=== PATIENT | female | born 1975 | race Caucasian/White ===

== ENCOUNTER → 2017-10-24 | Outpatient (CLI) | payer OTHER | LOC: RAD 07:44 | DX: Z12.31 Encounter for screening mammogram for malignant neoplasm of breast (principal) ==

== ENCOUNTER → 2018-02-02 | Outpatient (CLI) | payer OTHER | LOC: CAT 06:06 | DX: J32.3 Chronic sphenoidal sinusitis (principal); J32.0 Chronic maxillary sinusitis; J34.89 Other specified disorders of nose and nasal sinuses; G43.001 Migraine without aura, not intractable, with status migrainosus ==

== ENCOUNTER → 2018-08-28 | Outpatient (CLI) | payer OTHER | LOC: ULTRA 07:31 | DX: N83.02 Follicular cyst of left ovary (principal) ==

== ENCOUNTER → 2019-01-18 | Outpatient (CLI) | payer OTHER | LOC: RAD 01:05 | DX: Z12.31 Encounter for screening mammogram for malignant neoplasm of breast (principal) ==

== ENCOUNTER → 2019-01-28 | Outpatient (CLI) | payer OTHER | LOC: ULTRA 01:56 | DX: N60.02 Solitary cyst of left breast (principal) ==

== ENCOUNTER → 2019-01-31 | Outpatient (CLI) | payer OTHER | LOC: ULTRA 08:01 | DX: R10.2 Pelvic and perineal pain (principal) ==

== ENCOUNTER → 2020-02-12 | Outpatient (CLI) | payer OTHER | LOC: BC 15:20 | PROVIDERS: ATTEND Family Medicine | DX: Z12.31 Encounter for screening mammogram for malignant neoplasm of breast (principal) ==

== ENCOUNTER → 2020-04-29 | Outpatient (CLI) | payer OTHER ==
[~2020-04-29] MED LIST: ADIPEX-P37.5 MG PO; AJOVY225 MG/1.5 SUBQ; ALPRAZOLAM 0.50.5 M1 PO; BIOTIN5000 MC1 PO; IMITREX100 MG PO; LOSARTAN POTAS100 MG PO; SINGULAIR 10 MG10 MG PO; VALTREX1000 MG PO; VITAMIN D310 MC1 PO; ZYRTEC10 M5 PO
== END ==
LOC: LAB 10:50
PROVIDERS: ATTEND Internal Medicine Gastroenterology
DX: Z01.812 Encounter for preprocedural laboratory examination (principal); Z20.828 Contact with and (suspected) exposure to other viral communicable diseases

== ENCOUNTER → 2020-05-04 | Outpatient (CLI) | payer OTHER ==
[~2020-05-04] VITALS: Ht 165.1 cm; Wt 79.4 kg
--- NOTE | 2020-05-05 16:06 | PATH ---
[facility] [address] [place] [address] PATHOLOGY RPT PROCEDURE Name: MARGARETTE MORENO Room #: REG [facility]..#: [id number] Admission: 05/04/20 Date of : 79 Discharge: Report #: [id number] Path Case #: [id number] [facility] Accession Number: [id number] . 01 Material submitted: . esophagus - BX OF ESOPHAGUS . 01 Clinical history: . CHRONIC GERD, DYSPHAGIA, R/O EOSINOPHILIC ESOPHAGITIS . 02 Diagnosis: Squamous mucosa, esophagus, rule out eosinophilic esophagitis, endoscopic biopsy: - Mild esophagitis. - Negative for intestinal metaplasia or dysplasia. - Negative for eosinophilic esophagitis. (IUV:pit 05/05/2020) QTP 05/05/2020 1425 Local . 02 Electronically signed: . Krystina Sawyer MD, Pathologist NPI- [id number] . 01 Gross description: . The specimen is received in formalin, labeled "Margarette Moreno, biopsy of esophagus, R/O eosinophilic esophagitis". Received are four segments of pale stone soft tissue ranging in size from 0.3 to 0.5 cm in maximum dimensions. The specimen is submitted entirely in cassette A1. (CAA; 05/04/2020) QAC/QAC 05/04/2020 1753 Local . 02 Pathologist provided ICD-10: K20.9 . 02 CPT . 357159 Specimen Comment: A courtesy copy of this report has been sent to [phone] Specimen Comment: [phone] Specimen Comment: Report sent to / DR BULLOCK Performed at: [address] [id number] MD Arturo Osman MD Phone: [phone] Performed at: [address] [id number] [address] [address] PATHOLOGY RPT PROCEDURE Name: MARGARETTE MORENO Room #: REG [facility] Katz#: [id number] Admission: 05/04/20 Date of : 79 Discharge: Report #: [id number] Path Case #: [id number] MD Krystina Sawyer MD Phone: [phone]
== END | disposition home or self-care (01) ==
LOC: GI 09:40
PROVIDERS: ATTEND Internal Medicine Gastroenterology
DX: K21.0 Gastro-esophageal reflux disease with esophagitis (principal); R13.10 Dysphagia, unspecified; I10 Essential (primary) hypertension; G43.909 Migraine, unspecified, not intractable, without status migrainosus; F32.9 Major depressive disorder, single episode, unspecified; F41.9 Anxiety disorder, unspecified; Z98.890 Other specified postprocedural states; Z79.899 Other long term (current) drug therapy; Z85.820 Personal history of malignant melanoma of skin
CPT/HCPCS: 62110; 62900

== ENCOUNTER → 2020-08-31 | Outpatient (CLI) | payer OTHER | LOC: LAB 08:19 | PROVIDERS: ATTEND Family Medicine | DX: Z20.822 Contact with and (suspected) exposure to COVID-19 (principal) ==

== ENCOUNTER → 2021-03-12 | Outpatient (CLI) | payer OTHER | LOC: BC 09:12 → ULTRA 12:42 → BC 12:42 | PROVIDERS: ATTEND Obstetrics & Gynecology | DX: Z12.31 Encounter for screening mammogram for malignant neoplasm of breast (principal); N64.89 Other specified disorders of breast; N63.20 Unspecified lump in the left breast, unspecified quadrant ==

== ENCOUNTER → 2021-06-01 | Outpatient (CLI) | payer OTHER ==
[2021-06-01 16:28] LABS: CALCIUM 8.6 mg/dL (8.5-10.1); POTASSIUM 4.2 mmol/L (3.5-5.1)
== END ==
LOC: LAB 15:27
DX: I50.30 Unspecified diastolic (congestive) heart failure (principal)